=== PATIENT | female | born 1990 | race Hispanic/Latino ===

== ENCOUNTER 2018-04-20 14:24 | Emergency (ER) | payer SELFPAY | END 2018-04-20 14:46 | disposition home or self-care (01) | LOC: ERS 14:24 | DX: J30.1 Allergic rhinitis due to pollen (principal); F32.9 Major depressive disorder, single episode, unspecified; Z87.891 Personal history of nicotine dependence | CPT/HCPCS: 99283 ==

== ENCOUNTER 2018-11-01 23:53 | Emergency (ER) | payer SELFPAY | END 2018-11-02 01:14 | disposition left against medical advice (07) | LOC: ERS 23:53 | DX: Z53.21 Procedure and treatment not carried out due to patient leaving prior to being seen by health care provider (principal) ==

== ENCOUNTER 2019-11-13 09:46 | Emergency (ER) | payer SELFPAY ==
[2019-11-13] MEDS ORDERED: Acetaminophen 500 MG TAB ONE (10:08)
[2019-11-13] MEDS ORDERED: Ibuprofen 800 MG TAB ONE (10:08)
== END 2019-11-13 10:24 | disposition home or self-care (01) ==
LOC: ERS 09:46
DX: J11.1 Influenza due to unidentified influenza virus with other respiratory manifestations (principal); F17.210 Nicotine dependence, cigarettes, uncomplicated; J45.909 Unspecified asthma, uncomplicated; F32.9 Major depressive disorder, single episode, unspecified
CPT/HCPCS: 94640

== ENCOUNTER 2020-11-20 16:24 | Emergency (ER) | payer MEDICAID, SELFPAY ==
[2020-11-21 02:28] LABS: SARS-CoV-2 PCR by NAA Not Detected (NotDetected)
== END 2020-11-20 16:40 | disposition home or self-care (01) ==
LOC: ERS 16:24
DX: Z20.822 Contact with and (suspected) exposure to COVID-19 (principal); J45.909 Unspecified asthma, uncomplicated; F17.210 Nicotine dependence, cigarettes, uncomplicated
CPT/HCPCS: 87635; 99283; U0003; U0005

== ENCOUNTER 2021-07-10 00:50 | Emergency (ER) | payer OTHER | END 2021-07-10 01:20 | LOC: ERS 00:50 | DX: Z02.89 Encounter for other administrative examinations (principal); F17.290 Nicotine dependence, other tobacco product, uncomplicated | CPT/HCPCS: 99283 ==

== ENCOUNTER 2021-11-10 02:13 | Inpatient (IN) | payer OTHER ==
[2021-11-10] MEDS ORDERED: Fentanyl 100 MCG/2 ML VIAL ONE ×3 (02:25→15:08)
[2021-11-10 02:48] LABS: #Basophils 0.1 thou/uL (0.0-0.2); #Eosinphils 0.1 thou/uL (0.0-0.7); #Lymphocytes 2.6 thou/uL (1.20-3.40); #Monocytes 0.7 thou/uL (0.11-0.59); #Neutrophils 5.9 thou/uL (1.40-6.50); %Basophils 0.8 % (0.0-1.0); %Eosinophils 1.1 % (0.0-10.0); %Lymphocytes 27.6 % (21.0-51.0); %Monocytes 7.6 % (0.0-10.0); %Neutrophils 62.9 % (42.0-75.0); Hemoglobin 14.3 g/dL (12.0-16.0); Mean Corpuscular HGB CONC 35.3 g/dL (32.0-36.0); Mean Corpuscular Hemoglobin 35.7 pg (27.0-31.0); Mean Platelet Volume 7.4 fL (7.4-10.4); Platelet Count 367 thou/uL (130-400); RBC Distribution Width 11.8 % (11.5-14.5); Red Blood Cell (RBC) Count 4.01 mill/uL (4.20-5.40); White Blood Cell (WBC) Count 9.4 thou/uL (4.8-10.8)
[2021-11-10 02:56] LABS: BHCG - Serum Negative (NEGATIVE); Pregs Control Background? CLEAR/WHITE (CLR/WHITE); Pregs Control Bar Appear? YES (CONTROL BAR)
[2021-11-10 03:03] LABS: ALT (SGPT) 17 U/L (8-55); AST (SGOT) 31 U/L (5-34); Albumin 4.2 g/dL (3.5-5.0); Alkaline Phosphatase 74 U/L (40-110); Anion Gap 15 mmol/L (10-20); BUN (Urea Nitrogen) 6 mg/dL (7.0-18.7); Bilirubin, Total 0.4 mg/dL (0.2-1.2); Calc. Creatinine Clearance 0 mL/min (70-130); Calcium 9.7 mg/dL (7.8-10.44); Carbon Dioxide 21 mmol/L (22-29); Chloride 104 mmol/L (98-107); Globulin 3.3 g/dL (2.4-3.5); Glucose 105 mg/dL (70-105); Potassium 3.5 mmol/L (3.5-5.1); Protein, Total 7.5 g/dL (6.0-8.3); Sodium 136 mmol/L (136-145)
[2021-11-10] MEDS ORDERED: PROPOFOL 20 ML ONE (03:28)
[2021-11-10] MEDS ORDERED: Dextrose 5% in Water 1,000 ML IV PRN (04:18)
[2021-11-10] MEDS ORDERED: Morphine 4 MG/ML VIAL SLOW IVP PRN ×2 (04:18→04:22)
[2021-11-10] MEDS ORDERED: Dextrose 50% Abboject 50 ML SYRINGE SLOW IVP PRN (04:18)
[2021-11-10] MEDS ORDERED: Ondansetron PF 4 MG/2 ML Vial IVP PRN ×2 (04:18→14:45)
[2021-11-10] MEDS ORDERED: Ibuprofen 800 MG TAB PO PRN (04:22)
[2021-11-10] MEDS ORDERED: traMADol HCl 50 MG TAB PO PRN ×3 (04:22→14:45)
[2021-11-10] MEDS ORDERED: Promethazine HCl 25 MG/ML VIAL IM PRN ×3 (07:50→17:00)
[2021-11-10] MEDS ORDERED: CEFAZOLIN 2 GM in Premix Bag 1 BAG IVPB SCH (08:00)
[2021-11-10] MEDS ORDERED: traMADol HCl 50 MG TAB ONE (08:46)
[2021-11-10] MEDS ORDERED: Morphine 4 MG/ML VIAL ONE (08:46)
[2021-11-10] MEDS ORDERED: Acetaminophen 325 MG TAB ONE (08:48)
[2021-11-10] MEDS ORDERED: Folic Acid 1 MG TAB ONE (08:48)
[2021-11-10] MEDS ORDERED: Famotidine/PF 20 mg/2ml Vial ONE (08:48)
[2021-11-10] MEDS ORDERED: Ketorolac Tromethamine 30 MG/ML VIAL ONE ×2 (08:48→17:36)
[2021-11-10] MEDS ORDERED: Thiamine 100 MG TAB ONE (08:48)
[2021-11-10] MEDS ORDERED: Cyclobenzaprine 10 MG TAB ONE (08:48)
[2021-11-10] MEDS: Acetaminophen 325 MG TAB PO SCH ×4 (09:06→22:04)
[2021-11-10] MEDS: Ketorolac Tromethamine 30 MG/ML VIAL IVP SCH ×4 (09:07→23:28)
[2021-11-10] MEDS: Sodium Chloride 0.9% 1,000 ML IV SCH ×2 (09:08→20:47)
[2021-11-10] MEDS: traMADol HCl 50 MG TAB PO SCH ×4 (09:08→23:29)
[2021-11-10] MEDS: Famotidine/PF 20 mg/2ml Vial SLOW IVP SCH ×2 (09:10→21:07)
[2021-11-10] MEDS: Folic Acid 1 MG TAB PO SCH (09:11)
[2021-11-10] MEDS: Cyclobenzaprine 10 MG TAB PO PRN (09:11)
[2021-11-10] MEDS: Thiamine 100 MG TAB PO SCH (09:11)
[2021-11-10 09:28] LABS: SARS-CoV-2 NAA Rapid Test Not Detected (NotDetected)
[2021-11-10] MEDS ORDERED: Iopamidol-370 76% 500 ML 1 ML ONE (09:43)
[2021-11-10] MEDS ORDERED: HYDROmorphone 0.5 MG/0.5 ML SYRINGE ONE (10:19)
[2021-11-10] MEDS ORDERED: Ropivacaine 0.2% 550 ML 550 ML NERVE BLCK SCH (14:45)
[2021-11-10] MEDS ORDERED: HYDROcodone/Acetaminophen 10/325 mg Tablet PO PRN ×2 (14:45)
[2021-11-10] MEDS ORDERED: Zolpidem Tartrate 5 MG TAB PO PRN (14:45)
[2021-11-10] MEDS ORDERED: Fentanyl 100 MCG/2 ML VIAL SLOW IVP PRN (14:48)
[2021-11-10] MEDS ORDERED: Promethazine HCl 25 MG/ML VIAL ONE (15:09)
[2021-11-10] MEDS ORDERED: ceFAZolin 2 GM/DEX 5% 100 ML BAG ONE (15:12)
[2021-11-10] MEDS ORDERED: Ondansetron PF 4 MG/2 ML Vial ONE (15:21)
[2021-11-10] MEDS ORDERED: Bupivacaine HCl 0.5%/Epinephrine 1:200,000/PF 30 ml Vial ONE (15:21)
[2021-11-10] MEDS ORDERED: ePHEDrine 50 MG/ML VIAL ONE (15:21)
[2021-11-10] MEDS ORDERED: Lidocaine 1% PF 5 ML VIAL ONE (15:21)
[2021-11-10] MEDS ORDERED: PROPOFOL 200 MG/20 ML VIAL ONE (15:21)
[2021-11-10] MEDS ORDERED: Ondansetron HCl/PF 4 MG/2 ML Vial IVP PRN (17:00)
[2021-11-10] MEDS ORDERED: Promethazine HCl 25 MG/ML VIAL IVPB PRN (17:00)
[2021-11-10] MEDS: Oxazepam 10 MG CAP PO SCH ×2 (20:44→21:55)
[2021-11-10] MEDS: Multivitamin W/ Minerals 1 TAB PO SCH (20:45)
[2021-11-10] MEDS: Polyethylene Glycol 3350 17 GM Packet PO SCH (20:45)
[2021-11-10] MEDS: Senokot S 8.6-50 MG TAB PO SCH ×2 (20:45→21:07)
[2021-11-10] MEDS: ceFAZolin Sodium/D5W 2 GM in Premix Bag 1 BAG IVPB SCH (21:07)
[2021-11-10 22:49] VITALS: BMI 29.6
[2021-11-11] MEDS: Sodium Chloride 0.9% 1,000 ML IV SCH ×3 (02:38→17:15)
[2021-11-11] MEDS: Acetaminophen 325 MG TAB PO SCH ×4 (04:40→20:58)
[2021-11-11 06:27] LABS: #Eosinphils 0.2 thou/uL (0.0-0.7); #Lymphocytes 2.9 thou/uL (1.20-3.40); #Monocytes 1.2 thou/uL (0.11-0.59); #Neutrophils 5.4 thou/uL (1.40-6.50); %Basophils 0.5 % (0.0-1.0); %Eosinophils 2.4 % (0.0-10.0); %Lymphocytes 29.5 % (21.0-51.0); %Neutrophils 55.6 % (42.0-75.0); Hemoglobin 10.7 g/dL (12.0-16.0); Mean Corpuscular HGB CONC 34.8 g/dL (32.0-36.0); Mean Corpuscular Hemoglobin 36.2 pg (27.0-31.0); Mean Platelet Volume 7.4 fL (7.4-10.4); Platelet Count 233 thou/uL (130-400); RBC Distribution Width 11.8 % (11.5-14.5); Red Blood Cell (RBC) Count 2.95 mill/uL (4.20-5.40); White Blood Cell (WBC) Count 9.7 thou/uL (4.8-10.8)
[2021-11-11] MEDS: ceFAZolin Sodium/D5W 2 GM in Premix Bag 1 BAG IVPB SCH ×2 (06:54→15:07)
[2021-11-11] MEDS: Ketorolac Tromethamine 30 MG/ML VIAL IVP SCH (06:56)
[2021-11-11] MEDS: Oxazepam 10 MG CAP PO SCH ×3 (06:57→22:54)
[2021-11-11] MEDS: traMADol HCl 50 MG TAB PO SCH (06:58)
[2021-11-11] MEDS: Famotidine/PF 20 mg/2ml Vial SLOW IVP SCH ×2 (09:50→20:58)
[2021-11-11] MEDS: Folic Acid 1 MG TAB PO SCH (09:51)
[2021-11-11] MEDS: Ibuprofen 200 MG TAB PO SCH ×3 (09:51→23:42)
[2021-11-11] MEDS: Thiamine 100 MG TAB PO SCH (09:51)
[2021-11-11] MEDS: Polyethylene Glycol 3350 17 GM Packet PO SCH (09:51)
[2021-11-11] MEDS: Senokot S 8.6-50 MG TAB PO SCH ×2 (09:51→20:58)
[2021-11-11] MEDS: Multivitamin W/ Minerals 1 TAB PO SCH (09:51)
[2021-11-11] MEDS: Acetaminophen/Codeine 30-300mg Tablet PO SCH ×3 (10:05→20:58)
[2021-11-11] MEDS ORDERED: Acetaminophen 500 MG TAB PO SCH (11:00)
[2021-11-11] MEDS: Cyclobenzaprine 10 MG TAB PO PRN (19:00)
[2021-11-12] MEDS: Acetaminophen/Codeine 30-300mg Tablet PO SCH ×3 (03:16→14:46)
[2021-11-12] MEDS: Acetaminophen 325 MG TAB PO SCH ×3 (03:16→14:52)
[2021-11-12 04:04] VITALS: TEMP 98
[2021-11-12] MEDS: Meperidine HCl/PF 25 MG/ML VIAL IM PRN ×2 (04:19→13:03)
[2021-11-12 06:06] LABS: #Eosinphils 0.2 thou/uL (0.0-0.7); #Neutrophils 6.3 thou/uL (1.40-6.50); %Basophils 0.4 % (0.0-1.0); %Eosinophils 1.8 % (0.0-10.0); %Lymphocytes 20.9 % (21.0-51.0); %Monocytes 10.6 % (0.0-10.0); %Neutrophils 66.2 % (42.0-75.0); Hemoglobin 10.4 g/dL (12.0-16.0); Mean Corpuscular HGB CONC 34.3 g/dL (32.0-36.0); Mean Corpuscular Hemoglobin 35.5 pg (27.0-31.0); Mean Platelet Volume 7.9 fL (7.4-10.4); Platelet Count 217 thou/uL (130-400); RBC Distribution Width 11.8 % (11.5-14.5); Red Blood Cell (RBC) Count 2.93 mill/uL (4.20-5.40); White Blood Cell (WBC) Count 9.5 thou/uL (4.8-10.8)
[2021-11-12] MEDS: Oxazepam 10 MG CAP PO SCH ×2 (06:21→14:52)
[2021-11-12] MEDS: Sodium Chloride 0.9% 1,000 ML IV SCH (06:22)
[2021-11-12] MEDS: Polyethylene Glycol 3350 17 GM Packet PO SCH ×2 (09:20→09:21)
[2021-11-12] MEDS: Cyclobenzaprine 10 MG TAB PO PRN (09:21)
[2021-11-12] MEDS: Senokot S 8.6-50 MG TAB PO SCH (09:21)
[2021-11-12] MEDS: Ibuprofen 200 MG TAB PO SCH ×2 (09:22→14:55)
[2021-11-12] MEDS: Thiamine 100 MG TAB PO SCH (09:22)
[2021-11-12] MEDS: Folic Acid 1 MG TAB PO SCH (09:22)
[2021-11-12] MEDS: Multivitamin W/ Minerals 1 TAB PO SCH (09:23)
[2021-11-12] MEDS: Famotidine/PF 20 mg/2ml Vial SLOW IVP SCH (09:30)
[2021-11-12 12:16] VITALS: BP 150/88
[2021-11-13] MEDS ORDERED: FLU VACC QS2021-22(6MOS UP)/PF 60 MCG/0.5 ML SYRINGE IM ONE (09:00)
== END 2021-11-12 15:10 | disposition home or self-care (01) | DRG 494 ==
LOC: ERS 02:13 → ERHOLD 05:52 → SURG B 13:01 → SURG A 13:51 → SURG B 19:27
PROVIDERS: ADMIT Surgery; ATTEND Surgery
PROC: 0QSK04Z Reposition Left Fibula with Internal Fixation Device, Open Approach (ICD-10-PCS; principal; 2021-11-10)
PROC: 0QSH04Z Reposition Left Tibia with Internal Fixation Device, Open Approach (ICD-10-PCS; 2021-11-10)
PROC: 0QSH04Z Reposition Left Tibia with Internal Fixation Device, Open Approach (ICD-10-PCS; 2021-11-10)
DX: S82.852A Displaced trimalleolar fracture of left lower leg, initial encounter for closed fracture (principal); J45.909 Unspecified asthma, uncomplicated; F10.129 Alcohol abuse with intoxication, unspecified; F32.A Depression, unspecified; Z20.822 Contact with and (suspected) exposure to COVID-19; V09.9XXA Pedestrian injured in unspecified transport accident, initial encounter; Y92.89 Other specified places as the place of occurrence of the external cause; Z90.49 Acquired absence of other specified parts of digestive tract; Z98.51 Tubal ligation status
CPT/HCPCS: 36415; 70450; 71045; 72125; 74177; 76000; 80053; 84703; 85025; A4306; C1713; G0390; J1170; J1885; J2175; J2270; J2405; J2550; J2704; J2795; J3010; J3490; J7050; S0028; U0002

== ENCOUNTER 2021-11-13 12:46 | Emergency (ER) | payer OTHER, SELFPAY ==
[2021-11-13] MEDS ORDERED: HYDROcodone/Acetaminophen 5/325 mg Tablet ONE (14:46)
== END 2021-11-13 14:57 | disposition home or self-care (01) ==
LOC: ERS 12:46
DX: G89.18 Other acute postprocedural pain (principal); J45.909 Unspecified asthma, uncomplicated; F17.290 Nicotine dependence, other tobacco product, uncomplicated
CPT/HCPCS: 99283

== ENCOUNTER 2023-04-17 16:58 | Emergency (ER) | payer OTHER, SELFPAY ==
[2023-04-17 17:36] LABS: #Eosinphils 0.1 thou/uL (0.0-0.7); #Monocytes 0.8 thou/uL (0.11-0.59); #Neutrophils 8.1 thou/uL (1.40-6.50); %Basophils 0.4 % (0.0-1.0); %Eosinophils 1.2 % (0.0-10.0); %Lymphocytes 14.3 % (21.0-51.0); %Monocytes 7.1 % (0.0-10.0); %Neutrophils 76.7 % (42.0-75.0); Hemoglobin 11.9 g/dL (12.0-16.0); Mean Corpuscular HGB CONC 34.8 g/dL (32.0-36.0); Mean Corpuscular Hemoglobin 33.2 pg (27.0-31.0); Mean Corpuscular Volume 95.5 fl (78.0-98.0); Mean Platelet Volume 10.4 fL (7.4-10.4); Platelet Count 255 10x3/uL (130-400); RBC Distribution Width 12.3 % (11.5-14.5); Red Blood Cell (RBC) Count 3.58 mill/uL (4.20-5.40); White Blood Cell (WBC) Count 10.6 10x3/uL (4.8-10.8)
[2023-04-17 18:01] LABS: ALT (SGPT) 10 U/L (8-55); AST (SGOT) 18 U/L (5-34); Acetaminophen Less than 10 mcg/mL (10.0-30.0); Alcohol Less than 10.0 mg/dL (Less than 10); Alkaline Phosphatase 67 U/L (40-110); Anion Gap 9 mmol/L (10-20); BUN (Urea Nitrogen) 6 mg/dL (7.0-18.7); Bilirubin, Total 0.2 mg/dL (0.2-1.2); CK (CPK) 73 U/L (29-168); Calc. Creatinine Clearance 0 mL/min (70-130); Calcium 8.4 mg/dL (7.8-10.44); Carbon Dioxide 25 mmol/L (22-29); Chloride 107 mmol/L (98-107); Estimated GFR 97; Globulin 2.1 g/dL (2.4-3.5); Glucose 98 mg/dL (70-105); Potassium 3.9 mmol/L (3.5-5.1); Protein, Total 5.1 g/dL (6.0-8.3); Salicylate Less than 8.0 mg/dL (15.0-30.0); Sodium 137 mmol/L (136-145)
== END 2023-04-17 19:50 | disposition left against medical advice (07) ==
LOC: ERS 16:58
DX: Z53.29 Procedure and treatment not carried out because of patient's decision for other reasons (principal)
CPT/HCPCS: 36415; 71045; 80053; 80307; 82550; 83605; 84484; 85025; 93005